=== PATIENT | male | born 1960 | race Caucasian/White ===

== ENCOUNTER 2017-07-19 13:22 | Emergency (ER) | payer MEDICAID ==
[~2017-07-19] VITALS: Ht 170.2 cm; Wt 103.4 kg
[~2017-07-19 13:22] MED LIST: ASPI81TA23 PO; ATOR80TA45 PO; BUPR100T4 PO; FURO40TA PO; LISI40TA PO; METF500T4 PO; METO1TAB9 PO; NAPR500T2 PO; NICO21DI2 T-DERMAL; PLAV75TA29 PO
[2017-07-19 13:27] VITALS: BP 157/78; PULSE 105; RESP 20; TEMP 97.9; O2SAT 95
[2017-07-19] MEDS ORDERED: predniSONE 20 MG TAB PO ONE (15:00)
[2017-07-19] MEDS ORDERED: RESP: ALBUTEROL 2.5 MG/IPRATROPIUM 0.5 MG NEB (SCH) INH ONE (15:00)
[2017-07-19] MEDS ORDERED: AZIT250T3 PO (15:45)
[2017-07-19] MEDS ORDERED: PRED20 PO (15:45)
[2017-07-19] MEDS ORDERED: BENZ100 PO (15:45)
[2017-07-19] MEDS ORDERED: VENTAER INH (15:45)
--- NOTE | 2017-07-19 15:46 | PD ---
HPI Chief Complaint: Cold / Flu Symptoms Time Seen by Provider: 14:43 Travel History International Travel<30 days: No Contact w/Intl Traveler<30days: No Traveled to known affect area: No History of Present Illness HPI This is a 57-year-old male here with productive cough and wheezing times one week. He reports he had upper respiratory like symptoms prior to the cough and wheezing. He denies chest pain, palpitations, fever or chills. History of asthma. Not currently using any bronchodilators. Symptom severity is moderate. No aggravating or alleviating factors. PFSH Past Medical History Hx Anticoagulant Therapy: Yes (PLAVIX) Cardiovascular Problems: Yes High Cholesterol: Yes Congestive Heart Failure: Yes Cerebrovascular Accident: Yes (x2) Coronary Artery Disease: Yes Diabetes: Yes Patient Takes Glucophage: Yes Diminished Hearing: Yes (hearing aids) Hypertension: Yes Immunizations Current: Yes Tetanus Vaccination: Unknown Influenza Vaccination: No Past Surgical History Cardiac Surgery: Yes (open heart) Coronary Artery Bypass Graft: Yes (x2) Coronary Stent: Yes Social History Alcohol Use: No Tobacco Use: Yes (1 ppd) Substance Use: No Allergies-Medications (Allergen,Severity, Reaction): Coded Allergies: bee venom protein (honey bee) (Verified Allergy, Unknown, 07/19/17) indomethacin (Verified Adverse Reaction, Intermediate, HEADACHE, 07/19/17) Reported Meds & Prescriptions Reported Meds & Active Scripts Active Tessalon Perles (Benzonatate) 100 Mg Cap 200 Mg PO TID PRN 3 Days Ventolin Hfa 18 GM Inh (Albuterol Sulfate) 90 Mcg/Act Aer 2 Puff INH Q4-6H PRN Azithromycin 250 Mg Tab 250 Mg PO DIRECTED Take 2 tabs (500 mg) on day 1 then 1 tab daily x 4 days. Prednisone 20 Mg Tab 40 Mg PO DAILY Take 40 mg (2 tablets) daily for 5 days Metformin ER (Metformin HCl) 500 Mg Ariana 500 Mg PO DAILY With evening meal Metoprolol Succinate ER 24 HR (Metoprolol Succinate) 50 Mg Tab 50 Mg PO DAILY Atorvastatin (Atorvastatin Calcium) 80 Mg Tab 80 Mg PO HS Lisinopril 40 Mg Tab 40 Mg PO DAILY Take one tab daily for high blood pressure. Furosemide 40 Mg Tab 40 Mg PO BID Take one pill in AM, one pill in PM. Plavix (Clopidogrel Bisulfate) 75 Mg Tab 75 Mg PO DAILY Take one daily. Aspirin EC (Aspirin) 81 Mg Tabdr 81 Mg PO DAILY Naproxen 500 Mg Tab 500 Mg PO BID Take with food Reported Bupropion HCl 100 Mg Tab 300 Mg PO HS Review of Systems Except as stated in HPI: all other systems reviewed are Neg General / Constitutional: No: Fever Eyes: No: Visual changes HENT: No: Headaches Cardiovascular: No: Chest Pain or Discomfort Respiratory: Positive: Cough, Wheezing Gastrointestinal: No: Abdominal Pain Genitourinary: No: Dysuria Physical Exam Narrative GENERAL: Alert well-appearing male. Nontoxic appearing. SKIN: Warm and dry. HEAD: Normocephalic. EYES: No injection or drainage. NECK: Supple, trachea midline. CARDIOVASCULAR: Regular rate and rhythm without murmurs, gallops, or rubs. RESPIRATORY: Breath sounds equal bilaterally. No accessory muscle use. Diffuse expiratory wheezes with rhonchi GASTROINTESTINAL: Abdomen soft, non-tender, nondistended. MUSCULOSKELETAL: No cyanosis, or edema. BACK: Nontender without obvious deformity. No CVA tenderness. Data Data Last Documented VS Vital Signs Date Time Temp Pulse Resp B/P (MAP) Pulse Ox O2 Delivery O2 Flow Rate FiO2 07/19/17 14:34 Room Air 07/19/17 13:27 97.9 105 20 157/78 (104) 95 Orders Orders Influenzae A/B Antigen (07/19/17 14:46) Albuterol-Ipratropium Neb (Duoneb Neb) (07/19/17 15:00) Prednisone (Deltasone) (07/19/17 15:00) Ed Discharge Order (07/19/17 15:46) Acetaminophen (Tylenol) (07/19/17 16:00) MDM Medical Decision Making Medical Screen Exam Complete: Yes Emergency Medical Condition: Yes Differential Diagnosis Bronchitis, pneumonia, influenza, COPD exacerbation Narrative Course See 57-year-old male here with productive cough and wheezing times one week. The patient is nontoxic-appearing. Vital signs are stable. He did have expiratory wheeze and rhonchi on arrival. He was given prednisone 60 mg and DuoNeb breathing treatment. He reports symptom improvement after. Recheck of his pulse oximeter 97% on room air. Patient is stable and ready for discharge. Diagnosis Primary Impression: Bronchitis Referrals: Primary Care Physician Additional Instructions: Medications as prescribed. Use albuterol inhaler as prescribed. Follow-up with her primary doctor. Return if he developed new or worsening symptoms. Scripts Benzonatate (Tessalon Perles) 100 Mg Cap 200 MG PO TID Y for COUGH for 3 Days, CAP 0 Refills Prov: Sandra Ambrose 07/19/17 Albuterol 18 GM Inh (Ventolin Hfa 18 GM Inh) 90 Mcg/Act Aer 2 PUFF INH Q4-6H Y for SHORTNESS OF BREATH, #1 INHALER 0 Refills Prov: Sandra Ambrose 07/19/17 Azithromycin (Azithromycin) 250 Mg Tab 250 MG PO DIRECTED for Infection, #6 TAB 0 Refills Take 2 tabs (500 mg) on day 1 then 1 tab daily x 4 days. Prov: Sandra Ambrose 07/19/17 Prednisone (Prednisone) 20 Mg Tab 40 MG PO DAILY, #8 TAB 0 Refills Take 40 mg (2 tablets) daily for 5 days Prov: Sandra Ambrose 07/19/17 Disposition: 01 DISCHARGE HOME Condition: Stable Sandra Ambrose Jul 19, 2017 15:46
[2017-07-19] MEDS ORDERED: ACETAMINOPHEN 325 MG TAB PO ONE (16:00)
== END 2017-07-19 15:58 | disposition home or self-care (01) ==
LOC: PHED 13:22 → PHEFT 15:58
DX: J40 Bronchitis, not specified as acute or chronic (principal); F17.210 Nicotine dependence, cigarettes, uncomplicated; I50.9 Heart failure, unspecified; I10 Essential (primary) hypertension; E11.9 Type 2 diabetes mellitus without complications; Z79.84 Long term (current) use of oral hypoglycemic drugs; Z79.01 Long term (current) use of anticoagulants; Z95.1 Presence of aortocoronary bypass graft
CPT/HCPCS: 87804; 94664; 99284; J7512